=== PATIENT | female | born 1985 | race Caucasian/White ===

== ENCOUNTER 2020-05-17 20:42 | Observation (INO) ==
[2020-05-17 21:29] LABS: Basophils % 0.2 %; Eosinophils % 0.1 %; Hemoglobin 14.6 g/dL (11.5-15.4); Immature Granulocytes % 0.8 % (0-4); Lymphocytes # 1.8 K/mcL (0.6-4.6); Lymphocytes % 9.1 %; Mean Corpuscular HGB Conc 34.8 g/dL (31.6-35.5); Mean Corpuscular Hemoglobin 31.5 pg (28.0-33.3); Mean Corpuscular Volume 90.7 fL (83.0-100.0); Mean Platelet Volume 11.1 fL (9.4-12.4); Monocytes # 2.8 K/mcL (0.0-1.3); Monocytes % 14.2 %; Platelet Count 232 K/mcL (140-400); Red Blood Count 4.63 M/mcL (3.82-4.97); Red Cell Distribution Width 11.5 % (11.5-14.5); Segmented Neutrophils % 75.6 %; White Blood Count 19.8 K/mcL (4.3-11.1)
[2020-05-17] MEDS: 0.9 % Sodium Chloride 1,000 ML IVC SCH ×2 (21:29→22:05)
[2020-05-17] MEDS ORDERED: Ondansetron 4 MG/2 ML VIAL IVP ONE (21:30)
[2020-05-17] MEDS ORDERED: Morphine Sulfate 2 MG/ML SYRINGE IVP PRN (21:30)
[2020-05-17 21:41] LABS: Bacteria,Urine Few per hpf (None-Few); Bilirubin,Urine Negative (Negative); Blood,Urine Small (Negative); Clarity,Urine Clear (Clear); Color,Urine Yellow (Yellow); Glucose,Urine (UA) Normal (Normal); Ketones,Urine Negative (Negative); Leukocyte Esterase,Urine Large (Negative); Nitrite,Urine Negative (Negative); PH,Urine 6.5 pH Units (5.0-8.0); Protein,Urine 100 mg/dL (Neg-Trace); RBC,Urine 15-30 per hpf (0-3); Specific Gravity,Urine 1.015 (1.010-1.025); Squamous Epithelial Cell,Urine Few per hpf (None-Few); WBC,Urine 30-50 per hpf (0-3)
[2020-05-17] MEDS ORDERED: cefTRIAXone 1,000 MG in 0.9 % Sodium Chloride Mini Bag 100 ML IVPB ONE (21:50)
[2020-05-17 21:52] LABS: Alanine Aminotransferase 58 Units/L (7-52); Albumin 3.8 g/dL (3.5-5.7); Alkaline Phosphatase 63 Units/L (34-104); Aspartate Amino Transferase 32 Units/L (13-39); BUN/Creatinine Ratio 12 (6-26); Bilirubin,Total 0.7 mg/dL (0.3-1.0); Blood Urea Nitrogen 11 mg/dL (6-20); Calcium 8.6 mg/dL (8.6-10.3); Carbon Dioxide 25 mEq/L (23-29); Chloride 90 mEq/L (98-107); Glucose 182 mg/dL (70-105); Lipase 7 Units/L (11-82); Osmolality,Calculated 266 (280-300); Potassium 3.3 mEq/L (3.5-5.1); Sodium 126 mEq/L (136-145); Total Protein 7.8 g/dL (6.4-8.9); eGFR For African Americans > 60 (> 60); eGFR For Non-African Americans > 60 (> 60)
[2020-05-18] MEDS ORDERED: Naloxone 0.4 MG/ML INJ IVP PRN (02:44)
[2020-05-18 02:53] LABS: Hematocrit 37.4 % (35.3-44.9); Hemoglobin 12.7 g/dL (11.5-15.4); Mean Corpuscular Hemoglobin 31.2 pg (28.0-33.3); Mean Corpuscular Volume 91.9 fL (83.0-100.0); Mean Platelet Volume 11.9 fL (9.4-12.4); Platelet Count 212 K/mcL (140-400); Red Blood Count 4.07 M/mcL (3.82-4.97); Red Cell Distribution Width 11.7 % (11.5-14.5); White Blood Count 16.8 K/mcL (4.3-11.1)
[2020-05-18 03:02] LABS: BUN/Creatinine Ratio 11 (6-26); Blood Urea Nitrogen 9 mg/dL (6-20); Calcium 7.7 mg/dL (8.6-10.3); Carbon Dioxide 23 mEq/L (23-29); Chloride 99 mEq/L (98-107); Glucose 163 mg/dL (70-105); Magnesium 2.1 mg/dL (1.6-2.6); Osmolality,Calculated 274 (280-300); Phosphorous 1.6 mg/dL (2.7-4.5); Potassium 3.5 mEq/L (3.5-5.1); Sodium 131 mEq/L (136-145); eGFR For African Americans > 60 (> 60); eGFR For Non-African Americans > 60 (> 60)
[2020-05-18] MEDS ORDERED: Potassium Phosphate 44 MEQ in 0.9 % Sodium Chloride 250 ML IVPB ONE (03:54)
[2020-05-18] MEDS ORDERED: Ondansetron 4 MG/2 ML VIAL IVP PRN (03:56)
[2020-05-18] MEDS ORDERED: 0.9 % Sodium Chloride 1,000 ML IVC SCH (04:00)
[2020-05-18] MEDS ORDERED: Acetaminophen 325 MG TABLET PO PRN ×2 (04:27→15:01)
[2020-05-18] MEDS ORDERED: cefTRIAXone 1,000 MG in Water for inj. (sterile) 10 ML IVP SCH (09:00)
[2020-05-18] MEDS ORDERED: Nicotine 21 MG PATCH.TD24 TD SCH (09:00)
[2020-05-18 23:06] VITALS: BP 131/85
== END 2020-05-19 01:51 | disposition left against medical advice (07) ==
LOC: EMEROOARM 20:42 → 3ANU 20:42 → SUATTDRO 23:43 → 3ANU 05-18 00:13
PROVIDERS: ADMIT Internal Medicine; ATTEND Family Medicine